=== PATIENT | male | born 1990 | race Caucasian/White ===

== ENCOUNTER 2017-07-14 14:19 | Inpatient (IN) | payer OTHER ==
[~2017-07-14] VITALS: Ht 182.9 cm; Wt 102.2 kg
[2017-07-14] MEDS ORDERED: SODIUM CHLORIDE 0.9% 1,000ML IVBOLUS ONE ×2 (14:30→18:30)
[2017-07-14] MEDS ORDERED: FAMOTIDINE 20 MG/2 ML IVP ONE (14:30)
[2017-07-14] MEDS ORDERED: SODIUM CHLORIDE FLUSH 10ML SYR IVF ONE ×2 (14:30→18:30)
[2017-07-14] MEDS ORDERED: MAALOX/HYOSCYAMINE/LIDOCAINE 45 ML BTL PO ONE (14:30)
[2017-07-14 14:57] LABS: BASOPHILS # (AUTO) 0.01 x10^3/uL (0-0.1); BASOPHILS % (AUTO) 0 % (0-1); EOSINOPHILS # (AUTO) 0.03 x10^3/uL (0-0.4); EOSINOPHILS % (AUTO) 1 % (1-7); LYMPHOCYTES # (AUTO) 0.76 x10^3/uL (1-3.4); LYMPHOCYTES % (AUTO) 20 % (22-44); MD NO; MEAN CORPUSCULAR HEMOGLOBIN 28.5 pg (27.5-34.5); MEAN CORPUSCULAR HGB CONC 33.6 g/dL (33.2-36.2); MEAN CORPUSCULAR VOLUME 84.8 fL (81-97); MEAN PLATELET VOLUME 8.1 fL (7.4-10.4); MONOCYTES # (AUTO) 0.71 x10^3/uL (0.2-0.8); MONOCYTES % (AUTO) 18 % (2-9); NEUTROPHILS # (AUTO) 2.37 x10^3/uL (1.8-6.8); NEUTROPHILS % (AUTO) 61 % (42-75); PLATELET COUNT 219 x10^3/uL (130-400); RED CELL DISTRIBUTION WIDTH 14.5 % (9.4-14.8)
[2017-07-14 15:07] LABS: ALANINE AMINOTRANSFERASE 51 U/L (12-78); ALBUMIN 3.4 g/dL (3.4-5.0); ANION GAP 7 mmol/L (5-15); CALCIUM 8.4 mg/dL (8.5-10.1); CHLORIDE 105 mmol/L (98-107)
[2017-07-14 15:10] LABS: ALKALINE PHOSPHATASE 105 U/L (45-117); BILIRUBIN,TOTAL 0.7 mg/dL (0.2-1.0); CREATININE 1.08 mg/dL (0.7-1.3); TOTAL PROTEIN 7.8 g/dL (6.4-8.2)
[2017-07-14] MEDS ORDERED: MAALOX/HYOSCYAMINE/LIDOCAINE 45 ML BTL ONE (18:10)
[2017-07-14] MEDS ORDERED: FAMOTIDINE 20 MG TABLET ONE (18:10)
[2017-07-14] MEDS ORDERED: SODIUM CHLORIDE 0.9% 1,000 ML IV ONE ×2 (18:16→19:37)
[2017-07-14] MEDS ORDERED: MORPHINE SULFATE 4 MG/ML, 1ML ONE (18:58)
[2017-07-14] MEDS ORDERED: ONDANSETRON ODT 4 MG ONE (18:58)
[2017-07-14] MEDS ORDERED: ONDANSETRON ODT 4 MG PO ONE (19:00)
[2017-07-14] MEDS ORDERED: MORPHINE SULFATE 4 MG/ML, 1ML IVPush PRN ×2 (19:00→20:00)
[2017-07-14] MEDS ORDERED: SODIUM CHLORIDE FLUSH 10ML SYR IVF PRN (20:00)
[2017-07-14 21:00] VITALS: BP 127/83
[2017-07-14] MEDS ORDERED: ONDANSETRON 2MG/ML, 2ML IVPush PRN (21:00)
[2017-07-14] MEDS ORDERED: ACETAMINOPHEN 325 MG TABLET PO PRN (21:00)
[2017-07-14 22:21] LABS: MICROSCOPIC NOT IND
[2017-07-14] MEDS: SODIUM CHLORIDE 0.9% 1,000 ML IV SCH (22:23)
[2017-07-14] MEDS: morphine SULFATE 10 MG/ML, 1ML IVPush PRN (22:23)
[2017-07-14 22:24] LABS: CULTURE INDICATED? NO
[2017-07-14 22:25] LABS: OCCULT BLOOD POSITIVE (NEGATIVE)
[2017-07-14 22:38] LABS: STOOL FOR LEUKOCYTES MANY (>15/HPF) (NEGATIVE)
[2017-07-14 22:54] LABS: CLOSTRIDIUM DIFFICILE ANTIGEN NEGATIVE; CLOSTRIDIUM DIFFICILE TOXIN NEGATIVE (Negative)
[2017-07-15 00:42] VITALS: BP 121/74
[2017-07-15] MEDS: morphine SULFATE 10 MG/ML, 1ML IVPush PRN ×5 (01:36→20:09)
[2017-07-15] MEDS: ONDANSETRON ODT 4 MG PO PRN ×2 (01:42→17:32)
[2017-07-15] MEDS ORDERED: OMNIPAQUE 350 MG/ML, 100ML BOTTLE ONE (05:34)
[2017-07-15 05:58] LABS: ALANINE AMINOTRANSFERASE 43 U/L (12-78); ALBUMIN 2.9 g/dL (3.4-5.0); ANION GAP 8 mmol/L (5-15); CALCIUM 7.2 mg/dL (8.5-10.1); CHLORIDE 107 mmol/L (98-107); CREATININE 1.04 mg/dL (0.7-1.3)
[2017-07-15 06:00] LABS: ALKALINE PHOSPHATASE 89 U/L (45-117); BILIRUBIN,TOTAL 0.5 mg/dL (0.2-1.0); TOTAL PROTEIN 6.6 g/dL (6.4-8.2)
[2017-07-15 06:11] LABS: MEAN CORPUSCULAR HEMOGLOBIN 28.2 pg (27.5-34.5); MEAN CORPUSCULAR HGB CONC 33.6 g/dL (33.2-36.2); MEAN CORPUSCULAR VOLUME 84.2 fL (81-97); MEAN PLATELET VOLUME 8.3 fL (7.4-10.4); PLATELET COUNT 202 x10^3/uL (130-400); RED BLOOD COUNT 4.74 x10^6/uL (4.38-5.82); RED CELL DISTRIBUTION WIDTH 14.6 % (9.4-14.8)
[2017-07-15] MEDS: SODIUM CHLORIDE 0.9% 1,000 ML IV SCH ×3 (06:14→21:25)
[2017-07-15 06:52] LABS: MD YES
[2017-07-15 06:54] LABS: BAND#(MANUAL) 0.25 x10^3/uL; BANDS%(MANUAL) 5 % (0-7); EOS% (MANUAL) 2 % (1-7); MONOS#(MANUAL) 0.93 x10^3/uL (0.3-2.7); MONOS% (MANUAL) 19 % (2-9); SEG#(MANUAL) 2.65 x10^3/uL (1.8-6.8); SEGS% (MANUAL) 54 % (42-75)
[2017-07-15 06:56] LABS: <PLATELET ESTIMATE> ADEQUATE; <PLT MORPHOLOGY> NORMAL PLT MORPH; <RBC MORPHOLOGY> NORMAL
[2017-07-15 06:57] LABS: LYMPH#(MANUAL) 0.93 x10^3/uL (1-3.4); LYMPHS% (MANUAL) 19 % (22-44); REACTIVE LYMPHS # (MANUAL) 0.05 x10^3/uL (0-0); REACTIVE LYMPHS % (MANUAL) 1 % (0-0)
[2017-07-15 07:34] VITALS: BP 122/78
[2017-07-15] MEDS: OXYcodone/APAP 5/325MG TABLET PO PRN ×2 (10:58→17:26)
[2017-07-15] MEDS: CALCIUM CARBONATE 500 MG TABLET PO SCH ×2 (13:17→20:09)
[2017-07-15 14:57] VITALS: BP 125/77
[2017-07-15 16:16] LABS: MD YES; MEAN CORPUSCULAR HEMOGLOBIN 28.1 pg (27.5-34.5); MEAN CORPUSCULAR HGB CONC 33.4 g/dL (33.2-36.2); MEAN CORPUSCULAR VOLUME 84.2 fL (81-97); MEAN PLATELET VOLUME 7.9 fL (7.4-10.4); PLATELET COUNT 220 x10^3/uL (130-400); RED BLOOD COUNT 4.98 x10^6/uL (4.38-5.82); RED CELL DISTRIBUTION WIDTH 14.2 % (9.4-14.8)
[2017-07-15] MEDS ORDERED: CEFTRIAXONE 1,000 MG IM SCH (16:30)
[2017-07-15] MEDS ORDERED: GOLYTELY 4,000ML ORAL.SOL PO ONE (17:00)
[2017-07-15 17:05] LABS: <PLATELET ESTIMATE> ADEQUATE; <PLT MORPHOLOGY> NORMAL PLT MORPH; <RBC MORPHOLOGY> NORMAL; BAND#(MANUAL) 0.28 x10^3/uL; BANDS%(MANUAL) 7 % (0-7); BASOS#(MANUAL) 0.04 x10^3/uL (0-0.1); BASOS% (MANUAL) 1 % (0-1); LYMPH#(MANUAL) 0.76 x10^3/uL (1-3.4); LYMPHS% (MANUAL) 19 % (22-44); MONOS#(MANUAL) 0.72 x10^3/uL (0.3-2.7); MONOS% (MANUAL) 18 % (2-9); SEGS% (MANUAL) 55 % (42-75)
[2017-07-15] MEDS: METRONIDAZOLE PMX 500MG/100ML 100 ML IV SCH ×2 (17:26→21:25)
[2017-07-15] MEDS ORDERED: LIDOCAINE 1%, 2ML IM SCH (17:30)
[2017-07-15 20:46] VITALS: BP 112/73
[2017-07-16] MEDS: OXYcodone/APAP 5/325MG TABLET PO PRN ×4 (00:57→22:02)
[2017-07-16 02:07] VITALS: BP 108/62
[2017-07-16] MEDS: METRONIDAZOLE PMX 500MG/100ML 100 ML IV SCH (04:39)
[2017-07-16] MEDS: morphine SULFATE 10 MG/ML, 1ML IVPush PRN ×3 (04:39→13:03)
[2017-07-16] MEDS: ONDANSETRON ODT 4 MG PO PRN (04:39)
[2017-07-16 05:40] LABS: BASOPHILS # (AUTO) 0.02 x10^3/uL (0-0.1); BASOPHILS % (AUTO) 1 % (0-1); EOSINOPHILS # (AUTO) 0.06 x10^3/uL (0-0.4); EOSINOPHILS % (AUTO) 2 % (1-7); LYMPHOCYTES # (AUTO) 0.87 x10^3/uL (1-3.4); LYMPHOCYTES % (AUTO) 24 % (22-44); MD NO; MEAN CORPUSCULAR HEMOGLOBIN 28.8 pg (27.5-34.5); MEAN CORPUSCULAR HGB CONC 33.8 g/dL (33.2-36.2); MEAN CORPUSCULAR VOLUME 85.1 fL (81-97); MEAN PLATELET VOLUME 7.7 fL (7.4-10.4); MONOCYTES # (AUTO) 0.73 x10^3/uL (0.2-0.8); MONOCYTES % (AUTO) 20 % (2-9); NEUTROPHILS # (AUTO) 1.98 x10^3/uL (1.8-6.8); NEUTROPHILS % (AUTO) 54 % (42-75); PLATELET COUNT 223 x10^3/uL (130-400); RED BLOOD COUNT 4.78 x10^6/uL (4.38-5.82); RED CELL DISTRIBUTION WIDTH 14.6 % (9.4-14.8)
[2017-07-16 05:52] LABS: ALBUMIN 2.9 g/dL (3.4-5.0); ANION GAP 7 mmol/L (5-15); CALCIUM 8.4 mg/dL (8.5-10.1); CHLORIDE 105 mmol/L (98-107)
[2017-07-16 06:01] LABS: ALANINE AMINOTRANSFERASE 46 U/L (12-78); ALKALINE PHOSPHATASE 89 U/L (45-117); BILIRUBIN,TOTAL 0.5 mg/dL (0.2-1.0); CREATININE 0.91 mg/dL (0.7-1.3); TOTAL PROTEIN 6.7 g/dL (6.4-8.2)
[2017-07-16 06:55] VITALS: BP 118/78
[2017-07-16] MEDS ORDERED: MIDAZOLAM 1 MG/ML, 5ML ONE (07:54)
[2017-07-16] MEDS ORDERED: FENTANYL PF 100 MCG/2ML ONE ×2 (07:54)
[2017-07-16] MEDS ORDERED: MESALAMINE 1.2 GM TABLET.DR PO SCH (09:00)
[2017-07-16] MEDS: CALCIUM CARBONATE 500 MG TABLET PO SCH (09:59)
[2017-07-16 13:22] VITALS: BP 109/74
[2017-07-16] MEDS: POTASSIUM CHLORIDE 20 MEQ PACKET PO SCH (16:09)
[2017-07-16] MEDS ORDERED: CEFTRIAXONE PMX 1GM/50ML 50 ML IV SCH (16:30)
[2017-07-16 19:35] VITALS: BP 117/78
[2017-07-16] MEDS ORDERED: SODIUM CHLORIDE 0.9% 1,000 ML IV SCH (20:46)
[2017-07-17 01:39] VITALS: BP 115/73
[2017-07-17] MEDS: OXYcodone/APAP 5/325MG TABLET PO PRN ×2 (04:42→10:47)
[2017-07-17 05:25] LABS: ANION GAP 6 mmol/L (5-15); CALCIUM 8.5 mg/dL (8.5-10.1); CHLORIDE 106 mmol/L (98-107)
[2017-07-17 05:26] LABS: CREATININE 1.06 mg/dL (0.7-1.3)
[2017-07-17 07:25] VITALS: BP 119/82
[2017-07-17] MEDS: MESALAMINE 1.2 GM TABLET.DR PO SCH (08:53)
[2017-07-17] MEDS: SODIUM CHLORIDE 0.9% 1,000 ML IV SCH (10:26)
[2017-07-17 14:00] VITALS: BP 118/80
[2017-07-17 19:43] VITALS: BP 114/73
[2017-07-17] MEDS: POTASSIUM CHLORIDE 20 MEQ PACKET PO SCH (19:46)
[2017-07-18 02:25] VITALS: BP 115/70
[2017-07-18] MEDS: SODIUM CHLORIDE 0.9% 1,000 ML IV SCH (05:16)
[2017-07-18 07:48] VITALS: BP 128/84
[2017-07-18] MEDS: MESALAMINE 1.2 GM TABLET.DR PO SCH (08:40)
[2017-07-18] MEDS ORDERED: MESA1.2T PO (09:11)
[2017-07-18] MEDS ORDERED: PRED10TA PO (09:11)
== END 2017-07-18 11:48 | disposition home or self-care (01) | DRG 386 ==
LOC: ED 19:51 → EDIP 20:26 → 3NE 21:02 → DCLOUNGE 07-18 11:29
PROVIDERS: ADMIT Internal Medicine; ATTEND Internal Medicine
PROC: 0DBK8ZX Excision of Ascending Colon, Via Natural or Artificial Opening Endoscopic, Diagnostic (ICD-10-PCS; 2017-07-16)
PROC: 0DBN8ZX Excision of Sigmoid Colon, Via Natural or Artificial Opening Endoscopic, Diagnostic (ICD-10-PCS; 2017-07-16)
PROC: 0DBP8ZX Excision of Rectum, Via Natural or Artificial Opening Endoscopic, Diagnostic (ICD-10-PCS; 2017-07-16)
PROC: 0DBM8ZX Excision of Descending Colon, Via Natural or Artificial Opening Endoscopic, Diagnostic (ICD-10-PCS; 2017-07-16)
PROC: 0DBB8ZX Excision of Ileum, Via Natural or Artificial Opening Endoscopic, Diagnostic (ICD-10-PCS; principal; 2017-07-16 08:00)
DX: K51.50 Left sided colitis without complications (principal); K92.1 Melena; D62 Acute posthemorrhagic anemia; E83.51 Hypocalcemia; E87.6 Hypokalemia
CPT/HCPCS: 36415; 74021; 74177; 80048; 80053; 81003; 82272; 83605; 83690; 85025; 86140; 86141; 86480; 86704; 86706; 87040; 87046; 87077; 87324; 87340; 87427; 88305; 89055; 96361; 96374; 99152; 99153; J0696; J2250; J2405; J3010; Q0162; Q9967; J2270; J7030; J7512